=== PATIENT | female | born 1965 | race Caucasian/White ===

== ENCOUNTER 2017-02-20 14:27 | Emergency (ER) | payer SELFPAY ==
--- NOTE | 2017-02-20 14:48 | ER Document Report ---
ED Medical Screen (RME) - General Chief Complaint: Cough Stated Complaint: FLANK PAIN Time Seen by Provider: 02/20/17 14:45 Notes: Patient states that she is having right sided pain. 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 She also states that this may be due to a tumor on her right ovary. She states one year ago she was diagnosed with pancreatic cancer and had a Whipple procedure. She states the procedure totally eradicated the cancer. However at the same time they noticed a tumor on her ovary but told her that she could not have any surgeries or evaluations for it for 1 year. Therefore she has had no follow-up for it. She also states that she has chronic asthma and has been having a bad cough for several days. TRAVEL OUTSIDE OF THE [place] IN LAST 30 DAYS: No - Related Data Allergies/Adverse Reactions: No Known Allergies Allergy (Verified 02/20/17 14:29) Past Medical History - Social History Frequency of alcohol use: None Drug Abuse: Marijuana Pulmonary Medical History: Reports: Hx Asthma Neurological Medical History: Reports: Hx Migraine Renal/ Medical History: Denies: Hx Peritoneal Dialysis Musculoskeltal Medical History: Reports Hx Musculoskeletal Deformity, Reports Hx Musculoskeletal Trauma Psychiatric Medical History: Reports: Hx Anxiety, Hx Attention Deficit Hyperactivity Disorder, Hx Depression, Hx Post Traumatic Stress Disorder Traumatic Medical History: Reports: Hx Fractures - Clavicle foot shoulder arm Past Surgical History: Reports: Hx Appendectomy, Hx Orthopedic Surgery - Shoulder and foot Physical Exam - Vital signs Vitals: Temp Pulse Resp BP Pulse Ox 98.0 F 94 16 123/89 H 98 02/20/17 14:32 02/20/17 14:32 02/20/17 14:32 02/20/17 14:32 02/20/17 14:32 Course - Vital Signs Vital signs: Temp Pulse Resp BP Pulse Ox 98.0 F 94 16 123/89 H 98 02/20/17 14:32 02/20/17 14:32 02/20/17 14:32 02/20/17 14:32 02/20/17 14:32
[2017-02-20 15:16] LABS: ABSOLUTE EOSINOPHILS # (AUTO) 0.1 10^3/uL (0.0-0.6); ABSOLUTE LYMPHOCYTES (AUTO) 1.3 10^3/uL (0.5-4.7); ABSOLUTE MONOCYTES (AUTO) 0.4 10^3/uL (0.1-1.4); ABSOLUTE NEUT (AUTO) 7.1 10^3/uL (1.7-8.2); BASOPHILS % (AUTO) 0.4 % (0-2); EOSINOPHILS % (AUTO) 0.9 % (0-6); HEMATOCRIT 40.8 % (36.0-47.0); HEMOGLOBIN 13.6 g/dL (12.0-15.5); LYMPHOCYTES % (AUTO) 14.3 % (13-45); MEAN CORPUSCULAR HGB CONC 33.3 g/dL (32.0-36.0); MEAN CORPUSCULAR VOLUME 90 fl (80-97); MONOCYTES % (AUTO) 4.8 % (3-13); RED BLOOD COUNT 4.54 10^6/uL (3.72-5.28); RED CELL DISTRIBUTION WIDTH 13.7 % (11.5-14.0); SEGMENTED NEUTROPHILS % (AUTO) 79.6 % (42-78)
[2017-02-20 15:34] LABS: ALANINE AMINOTRANSFERASE 23 U/L (9-52); ALBUMIN 4.6 g/dL (3.5-5.0); ALKALINE PHOSPHATASE 79 U/L (38-126); ANION GAP 13 (5-19); ASPARTATE AMINO TRANSFERASE 24 U/L (14-36); BILIRUBIN,DIRECT 0.3 mg/dL (0.0-0.4); BILIRUBIN,TOTAL 0.4 mg/dL (0.2-1.3); BLOOD UREA NITROGEN 12 mg/dL (7-20); CALCIUM 10.1 mg/dL (8.4-10.2); CARBON DIOXIDE 27 mmol/L (22-30); CHLORIDE 105 mmol/L (98-107); CREATININE RESULT 0.81 mg/dL (0.52-1.25); GLUCOSE 131 mg/dL (75-110); POTASSIUM 4.4 mmol/L (3.6-5.0); SODIUM 145.2 mmol/L (137-145); TOTAL PROTEIN 7.5 g/dL (6.3-8.2)
--- NOTE | 2017-02-20 16:00 | RADIOLOGY REPORT (SQ) ---
EXAM DESCRIPTION: CHEST PA/LAT COMPLETED DATE/TIME: 02/20/2017 3:20 pm REASON FOR STUDY: cough COMPARISON: 11/22/2007 EXAM PARAMETERS: NUMBER OF VIEWS: two views TECHNIQUE: Digital Frontal and Lateral radiographic views of the chest acquired. RADIATION DOSE: NA LIMITATIONS: none FINDINGS: LUNGS AND PLEURA: No opacities, masses or pneumothorax. No pleural effusion. MEDIASTINUM AND HILAR STRUCTURES: No masses or contour abnormalities. HEART AND VASCULAR STRUCTURES: Heart normal size. No evidence for failure. BONES: No acute findings. HARDWARE: None in the chest. OTHER: No other significant finding. IMPRESSION: NO SIGNIFICANT RADIOGRAPHIC FINDING IN THE CHEST. TECHNICAL DOCUMENTATION: JOB ID: [id number] [employer]- All Rights Reserved
[2017-02-20] MEDS ORDERED: PROMETHAZINE HCL 25 MG TABLET PO ONE (16:37)
[2017-02-20] MEDS ORDERED: TRAMADOL HCL 50 MG TABLET PO ONE (16:38)
[2017-02-20 17:47] LABS: APPEARANCE,URINE SLIGHTLY-CLOUDY; BILIRUBIN,URINE NEGATIVE (NEGATIVE); GLUCOSE, URINE NEGATIVE (NEGATIVE); KETONES,URINE NEGATIVE (NEGATIVE); LEUKOCYTE ESTERASE,URINE TRACE (NEGATIVE); NITRITE,URINE NEGATIVE (NEGATIVE); PROTEIN,URINE NEGATIVE (NEGATIVE); UROBILINOGEN,URINE NEGATIVE mg/dL (<2.0)
[2017-02-20 18:57] LABS: CHLAM PCR NOT DETECTED (NOT DETECT)
--- NOTE | 2017-02-20 19:25 | RADIOLOGY REPORT (SQ) ---
EXAM DESCRIPTION: U/S NON OB PEL TV W/DOPPLER COMPLETED DATE/TIME: 02/20/2017 7:12 pm REASON FOR STUDY: RLQ pain, Hx ovarian cyst on right COMPARISON: CT dated 12/28/2015. TECHNIQUE: Dynamic and static grayscale images acquired of the pelvis via transvaginal approach and recorded on PACS. Additional selected color Doppler and spectral images recorded. LIMITATIONS: None. FINDINGS: UTERUS: Contour normal. No mass. ENDOMETRIAL STRIPE: Poorly visualized. CERVIX: No nabothian cysts. RIGHT OVARY: 3 x 3.5 cm cyst adjacent to the right ovary. RIGHT OVARY DOPPLER: Normal arterial vascular flow without evidence for torsion. LEFT OVARY: No abnormal masses. LEFT OVARY DOPPLER: Normal arterial vascular flow without evidence for torsion. FREE FLUID: None noted. OTHER: No other significant finding. MEASUREMENTS: UTERUS: 4.2 x 4.7 x 8.1 cm. ENDOMETRIAL STRIPE: Poorly visualized. RIGHT OVARY: 1.1 x 1.8 x 1.8 cm. LEFT OVARY: 1.3 x 1.8 x 2.2 cm. IMPRESSION: SIMPLE CYST ADJACENT TO THE RIGHT OVARY, LIKELY A PARAOVARIAN CYST. SIMILAR APPEARANCE TO PREVIOUS CT. NO TORSION OR OTHER SIGNIFICANT FINDINGS. TECHNICAL DOCUMENTATION: JOB ID: [id number] [employer]- All Rights Reserved
--- NOTE | 2017-02-20 20:09 | ER Document Report ---
ED General - General Chief Complaint: Cough Stated Complaint: FLANK PAIN Time Seen by Provider: 02/20/17 14:45 Notes: Patient awakened today and was feeling difficulty breathing and coughing. She tried her inhaler that she has for asthma but it did not help. Also says that her pain in the right lower quadrant, ovary has increased above its normal level. Patient has not had any fever. PMH: Appendectomy, cholecystectomy, depression, anxiety, and ADHD. Patient is also complaining of pain in her right ovary region where she was told a year ago that she had a swollen right ovary and tumor. Also, about a year ago patient also was discovered to have a cancer at the head of her pancreas for which she has undergone a Whipple procedure and is now cancer free. She has an appointment next week to see Dr. Chairez, her primary care physician who is to refer her to someone regarding her right ovarian tumor and, on that same CT scan study done a year ago, patient was noted to have some atrophy of the lower pole of her left kidney. TRAVEL OUTSIDE OF THE [place] IN LAST 30 DAYS: No - Related Data Allergies/Adverse Reactions: No Known Allergies Allergy (Verified 02/20/17 14:29) Past Medical History - Social History Smoking Status: Never Smoker Frequency of alcohol use: None Drug Abuse: Marijuana Family History: Reviewed & Not Pertinent, Arthritis, CAD, Hyperlipidemia, Hypertension, Thyroid Disfunction Patient has suicidal ideation: No Patient has homicidal ideation: No Pulmonary Medical History: Reports: Hx Asthma Neurological Medical History: Reports: Hx Migraine Musculoskeltal Medical History: Reports Hx Musculoskeletal Deformity, Reports Hx Musculoskeletal Trauma Psychiatric Medical History: Reports: Hx Anxiety, Hx Attention Deficit Hyperactivity Disorder, Hx Depression, Hx Post Traumatic Stress Disorder Traumatic Medical History: Reports: Hx Fractures - Clavicle foot shoulder arm Past Surgical History: Reports: Hx Appendectomy, Hx Orthopedic Surgery - Shoulder and foot Review of Systems - Review of Systems Notes: REVIEW OF SYSTEMS: CONSTITUTIONAL : Denies fever. EENT: Denies eye, ear, nose or mouth or throat pain or other symptoms. CARDIOVASCULAR: Denies chest pain. RESPIRATORY: Has had some cough for a day and some congestion. GASTROINTESTINAL: See HPI. GENITOURINARY: Denies difficulty or painful urinating, urinary frequency, blood in urine. MUSCULOSKELETAL: Denies back or neck pain. Denies joint pain or swelling. SKIN: Denies rash or skin lesions. NEUROLOGICAL: Denies LOC or altered mental status. Denies headache. Denies sensory loss or motor deficits. ALL OTHER SYSTEMS REVIEWED AND NEGATIVE. Physical Exam - Vital signs Vitals: Temp Pulse Resp BP Pulse Ox 98.0 F 94 16 123/89 H 98 02/20/17 14:32 02/20/17 14:32 02/20/17 14:32 02/20/17 14:32 02/20/17 14:32 - Notes Notes: PHYSICAL EXAMINATION: GENERAL: Well-appearing, in no acute distress. Vital signs are normal. HEAD: Atraumatic, normocephalic. NECK: Normal range of motion, supple. LUNGS: Breath sounds clear and equal bilaterally. HEART: Regular rate and rhythm without murmurs. ABDOMEN: Soft, only mild tenderness in the right lower quadrant. No guarding. No rebound. No masses felt. No bruits heard. BACK: No tenderness throughout entire back. EXTREMITIES: Normal range of motion without pain. NEUROLOGICAL: Normal speech, normal gait. Normal sensory, motor, and reflex exams. Awake, alert, and oriented x3. Cranial nerves normal. PSYCH: Normal mood, normal affect. SKIN: Warm, dry, no rashes. Course - Vital Signs Vital signs: Temp Pulse Resp BP Pulse Ox 97.8 F 84 19 127/81 H 95 02/20/17 20:25 02/20/17 20:25 02/20/17 20:25 02/20/17 20:25 02/20/17 20:25 - Laboratory Result Diagrams: 02/20/17 14:50 02/20/17 14:50 Laboratory results interpreted by me: 02/20/17 02/20/17 02/20/17 14:50 14:50 14:50 Seg Neutrophils % 79.6 H Sodium 145.2 H Glucose 131 H Beta HCG, Quant 7.24 H Ur Leukocyte Esterase 02/20/17 17:10 Seg Neutrophils % Sodium Glucose Beta HCG, Quant Ur Leukocyte Esterase TRACE H - Diagnostic Test Radiology reviewed: Image reviewed, Reports reviewed - Ultrasound reveals a small right ovarian cyst, slightly larger in dimensions than what was mentioned on her CT scan a year ago. Discharge - Discharge Clinical Impression: Cough, Trichomonas vaginitis, Ovarian cyst Condition: Stable Disposition: HOME, SELF-CARE Additional Instructions: UPPER RESPIRATORY ILLNESS: You have a viral infection of the respiratory passages -- a "cold." This common infection causes nasal congestion, drainage, and often sore throat and cough. It is highly contagious. The disease usually lasts about 10 to 14 days. There is no "cure" for the viral infection -- it must run its course. If there is a complication, such as bacterial infection in the nose, sinuses, middle ear, or bronchial tubes, antibiotics may be required. The antibiotics won't affect the virus. Drink plenty of fluids. A humidifier may help. An expectorant medication or decongestant may make you more comfortable. Use acetaminophen or ibuprofen for fever or aches. See the doctor if fever persists over two days, if there is any significant worsening of your symptoms, or if you simply fail to improve as expected. COUGH-SUPPRESSANT & EXPECTORANT MEDICATION: You are to use a cough medication as needed for relief of symptoms. This medicine is a combination of an expectorant (to make the mucous thinner and more easily "coughed up") and a cough suppressant (to reduce the frequency of coughing). The cough-suppressant medicine is related to narcotics. You may experience mild nausea and sleepiness. Some patients who are very sensitive to narcotics may have stomach pain from this medicine. Taking the medicine with food reduces these side effects. Do not drive or work with machinery until you know how this medicine affects you. The expectorant should have no side effects. Iodine-containing expectorants (such as organidin) should not be taken by persons with active thyroid disease unless approved by your doctor. Call the doctor if you develop shortness of breath, hives, rash, itching, lightheadedness, or severe nausea and vomiting. Oral Narcotic Medication You have been given a prescription for pain control. This medication is a narcotic. It's best taken with food, as nausea can result if taken on an empty stomach. Don't operate machinery or drive within six hours of taking this medication. Do not combine this medicine with alcohol, or with any medication which can cause sedation (such as cold tablets or sleeping pills) unless you get permission from the physician. Narcotics tend to cause constipation. If possible, drink plenty of fluids and eat a diet high in fiber and fruits. PELVIC PAIN: There are many causes of pain in the pelvic area. The cause could be the tubes, ovaries, uterus, intestines, appendix, pelvic muscles and connective tissue, or the urinary tract. The cause of your pelvic pain is not clear. However, it seems safe to treat you outside the hospital. If the pain sounds like a temporary problem, we sometimes wait to see if it goes away. Other patients may need additional tests, such as pelvic ultrasound or cultures. Conditions may change. Call us or come back for reexamination if any problems occur, such as: (1) Pain that becomes more severe, steady, or becomes concentrated in one specific area. Also, pain that is more severe with movement or coughing. (2) Vomiting that persists or becomes more frequent. (3) Blood in the vomitus, urine, or bowel movements. Blood in the stool may have a tarry or black appearance. (4) Shaking chills or fever greater than 100 degrees. (5) The abdomen becomes more distended or swollen. (6) Bowel movements cease. (7) Heavy vaginal bleeding. Ovarian Cyst Your examination shows the presence of an ovarian cyst. This is a ball of fluid attached to the ovary. Ovarian cysts in women of child-bearing age are usually innocent. However, the cyst may cause pain when it grows or bursts. An innocent ovarian cyst will usually go away by itself. When the cyst becomes painful, you should rest. Pain medication may be required. Some women find a hot water bottle soothing. The pain usually resolves within one or two days. After menopause, an ovarian cyst may mean a tumor, and requires more aggressive evaluation -- usually surgery is recommended to remove or biopsy the cyst. A very large cyst requires evaluation at any age. Most cysts (even the innocent ones) require follow-up examination. Call the doctor or return at any time if the pain increases significantly, if you become faint, or if you experience vaginal bleeding. Your cyst looks stable and is about the same as it was, may be slightly larger, than a year ago on the CT scan. Trichomonas Infection Trichomoniasis is infection of the vagina or male genital tract with Trichomonas vaginalis. It can be asymptomatic or cause urethritis, vaginitis, or occasionally cystitis, epididymitis, or prostatitis. Diagnosis is by microscopic examination of vaginal or prostatic secretions or by urethral culture. Patients and sex partners are treated with metronidazole. T. vaginalis is a flagellated, sexually transmitted protozoan that more often infects women (about 20% of women of reproductive age) than men. Infection may be asymptomatic in either sex, but asymptomatic is the rule for men. In men, protozoa may persist for long periods in the tract without causing symptoms; thus, protozoa may be transmitted unwittingly to sex partners. Trichomoniasis may account for up to 5% of nongonococcal, nonchlamydial urethritis in men in some areas. Co-infection with gonorrhea and other sexually transmitted diseases (STDs) is common. In women, symptoms range from none to copious, yellow-green, frothy vaginal discharge with soreness of the vulva and perineum, dyspareunia, and dysuria. Asymptomatic infection may become symptomatic at any time as the vulva and perineum become inflamed and edema develops in the labia. The vaginal davis and surface of the cervix may have punctate, red "strawberry" spots. Urethritis and possibly cystitis may also occur. Men are usually asymptomatic; however, sometimes urethritis results in a discharge that may be transient, frothy, or purulent or that causes dysuria and frequency, usually early in the morning. Often, urethritis is mild and causes only minimal urethral irritation and occasional moisture at the urethral meatus , under the foreskin, or both. Epididymitis and prostatitis are rare complications. Trichomoniasis is suspected in women with vaginitis, in men with urethritis , and in their sex partners. Suspicion is high if symptoms persist after patients have been evaluated and treated for other infections such as gonorrhea and chlamydial, mycoplasmal, and ureaplasmal infections. In women, diagnosis is based on clinical criteria and in-office testing. The saline wet mount is examined microscopically as soon as possible to detect trichomonads.In men, microscopy of urine is insensitive, although occasionally organisms are visible in a first-voided morning specimen or a centrifuged specimen. Cultures of urine and urethral swabs are more sensitive. As with diagnosis of any STD, patients with trichomoniasis should be tested to exclude other common STDs such as gonorrhea and chlamydial infection. Metronidazole or tinidazole 2 g po in a single dose cures up to 95% of women if sex partners are treated simultaneously. Effectiveness of single-dose regimens in men is not as clear, so treatment is typically with metronidazole or tinidazole 500 mg bid for 5 to 7 days. Sex partners should be screened and treated for trichomoniasis and other STDs. If poor adherence to follow-up is likely, treatment can be initiated in sex partners of patients with documented trichomoniasis without confirming the diagnosis in the partner. Oral Narcotic Medication for pain You have been given a prescription for pain control. This medication is a narcotic. It's best taken with food, as nausea can result if taken on an empty stomach. Don't operate machinery or drive within six hours of taking this medication. Do not combine this medicine with alcohol, or with any medication which can cause sedation (such as cold tablets or sleeping pills) unless you get permission from the physician. Narcotics tend to cause constipation. If possible, drink plenty of fluids and eat a diet high in fiber and fruits. METRONIDAZOLE: Metronidazole (Flagyl) has been prescribed. This medication is used to kill a type of bacteria called anaerobes, and protozoan parasites such as trichomonas and Giardia. Flagyl often causes a metallic taste in the mouth and mild nausea. Do not use alcohol in any form with Flagyl (including alcohol in medication elixirs). Flagyl interacts with alcohol to cause flushing, palpitations, headache, stomach cramps, and vomiting. Do not use Flagyl if you are taking Antabuse (disulfiram). Call the doctor at once if you develop rash, shortness of breath, itching, or lightheadedness. Your test came back minimally elevated and I am quite certain you are not . No was seen on your ultrasound. With a lab tests showing the results that yours did, we recommend you have a repeat test done in a week or 2. Your primary care provider can order that follow-up test. FOLLOW-UP CARE: If you have been referred to a physician for follow-up care, call the physician s office for an appointment as you were instructed or within the next two days. If you experience worsening or a significant change in your symptoms, notify the physician immediately or return to the Emergency Department at any time for re-evaluation. Prescriptions: Hydrocodone/Acetaminophen [[place] 5-325 mg Tablet] 1 tab PO Q4HP PRN #15 tablet PRN Reason: Metronidazole 500 mg PO BID #14 tablet Referrals: REJI CHAIREZ MD [Primary Care Provider] - Follow up as needed
[2017-02-20] MEDS ORDERED: HYDROCODONE/ACETAMINOPHEN 5-325 MG TABLET PO ONE (20:11)
[2017-02-20 20:26] VITALS: BP 127/81
== END 2017-02-20 20:25 | disposition home or self-care (01) ==
LOC: ER 14:27
DX: A59.01 Trichomonal vulvovaginitis (principal); N83.201 Unspecified ovarian cyst, right side; R05 Cough; R10.9 Unspecified abdominal pain; R10.31 Right lower quadrant pain
CPT/HCPCS: 36415; 71020; 76830; 80053; 81001; 84702; 85025; 87210; 87491; 87591; 93976; 99284

== ENCOUNTER 2017-06-24 14:11 | Emergency (ER) | payer MEDICAID ==
[2017-06-24 14:19] VITALS: BP 113/96
[2017-06-24] MEDS ORDERED: ONDANSETRON 4 MG TAB.RAPDIS PO ONE (15:02)
[2017-06-24] MEDS ORDERED: OXYCODONE-ACETAMINOPHEN 5-325 MG TABLET PO ONE (15:02)
--- NOTE | 2017-06-24 15:05 | ER Document Report ---
ED GI/ - General Chief Complaint: Abdominal Pain Stated Complaint: ABDOMINAL PAIN Time Seen by Provider: 06/24/17 14:50 Mode of Arrival: Ambulatory Information source: Patient, [facility] Records Notes: 51-year-old female patient reports sharp severe pains in the bladder with right flank pain. She reports right flank pain tends to wrap around down to the bladder. She has painful and frequent urination, she states it feels like razor blades when the urine does come out. Past medical significant for a Whipple procedure done about a year ago. She had been told about a right ovarian cyst, however in February and ultrasound showed a right paraovarian cyst that was unchanged from previous studies. She states that she does have a history of becoming anemic if she becomes ill ever since the Whipple procedure for a pancreatic head mass. He does not have a history of kidney stones, however she reports she has only a right kidney. TRAVEL OUTSIDE OF THE [place] IN LAST 30 DAYS: No - Related Data Allergies/Adverse Reactions: meperidine [From Demerol] Allergy (Verified 06/24/17 14:38) Past Medical History - General Information source: Patient, [facility] Records - Social History Smoking Status: Never Smoker Cigarette use (# per day): No Chew tobacco use (# tins/day): No Frequency of alcohol use: None Drug Abuse: Marijuana Occupation: Unemployed Lives with: Friend Family History: Reviewed & Not Pertinent, Arthritis, CAD, Hyperlipidemia, Hypertension, Thyroid Disfunction Patient has suicidal ideation: No Patient has homicidal ideation: No - Past Medical History Cardiac Medical History: Reports: None Pulmonary Medical History: Reports: Hx Asthma EENT Medical History: Reports: None Neurological Medical History: Reports: Hx Migraine Endocrine Medical History: Reports: None Renal/ Medical History: Reports: Other - 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 GI Medical History: Reports: Other - Patient did have a Whipple procedure recently for a mass in the head of the Musculoskeltal Medical History: Reports Hx Musculoskeletal Deformity, Reports Hx Musculoskeletal Trauma Psychiatric Medical History: Reports: Hx Anxiety, Hx Attention Deficit Hyperactivity Disorder, Hx Depression, Hx Post Traumatic Stress Disorder Traumatic Medical History: Reports: Hx Fractures - Clavicle foot shoulder arm Past Surgical History: Reports: Hx Appendectomy, Hx Orthopedic Surgery - Shoulder and foot, Hx Whipple Review of Systems - Review of Systems Constitutional: No symptoms reported EENT: No symptoms reported Cardiovascular: No symptoms reported Respiratory: No symptoms reported Gastrointestinal: No symptoms reported Genitourinary: See HPI Female Genitourinary: Post menopausal Musculoskeletal: No symptoms reported Skin: No symptoms reported Hematologic/Lymphatic: No symptoms reported Neurological/Psychological: No symptoms reported Physical Exam - Vital signs Vitals: Temp Pulse Resp BP Pulse Ox 98.2 F 105 H 18 113/96 H 98 06/24/17 14:17 06/24/17 14:17 06/24/17 14:17 06/24/17 14:17 06/24/17 14:17 Interpretation: Normal - General General appearance: Appears well, Alert In distress: Mild - She is uncomfortable from her suprapubic and flank discomfort - HEENT Head: Normocephalic, Atraumatic Eyes: Normal Pupils: PERRL Pharynx: Normal Neck: Normal - Respiratory Respiratory status: No respiratory distress Breath sounds: Normal - Cardiovascular Rhythm: Regular Heart sounds: Normal auscultation Murmur: No - Abdominal Inspection: Normal Bowel sounds: Normal Tenderness: Tender - Left lower quadrant palpation causes pain in the suprapubic right lower quadrant region. Suprapubic and right lower quadrant palpation is very tender.. No: Guarding, Rebound - Back Back: Nontender - Right flank area is not really tender to palpate., CVA tenderness - Some right CVA percussion tenderness - Extremities General upper extremity: Normal inspection General lower extremity: Normal inspection - Neurological Neuro grossly intact: Yes - Psychological Associated symptoms: Normal affect, Normal mood - Skin Skin Temperature: Warm Skin Moisture: Dry Skin Color: Normal Course - Re-evaluation Re-evalutation: 06/24/17 17:33 CT scan does not show acute findings other than an enlarging cystic mass in the right adnexal region which is suggestive of a dermoid cyst. The urinalysis had a specific gravity 1.040, this is patient was not receiving contrast. She reports that she had been vomiting, but does not look clinically that dry. The wound is 15 and her creatinine is 0.70 - Vital Signs Vital signs: Temp Pulse Resp BP Pulse Ox 98.2 F 105 H 18 113/96 H 98 06/24/17 14:17 06/24/17 14:17 06/24/17 14:17 06/24/17 14:17 06/24/17 14:17 - Laboratory Result Diagrams: 06/24/17 15:30 06/24/17 15:30 Laboratory results interpreted by me: 06/24/17 15:30 Urine Ketones TRACE H Urine Bilirubin SMALL H Urine Urobilinogen 2.0 H Urine Ascorbic Acid 40 H - Diagnostic Test Radiology reviewed: Image reviewed, Reports reviewed - CT scan shows a left atrophied kidney with duplicate collecting system and calculi in the lower pole of the kidney. In the right adnexal region there is a thick-walled cystic structure suggestive of a dermoid cyst. On 02/20/2017 this was 3.5 x 3.0 cm, today it is 4.1 x 3.8 cm. Ultrasound today is read as complex cystic mass right adnexa. On review of prior CT imaging it is suggestive of a pyosalpinx/ tubo-ovarian abscess. - Consults Dr. Nieto Time consulted: 19:10 Consulted provider: follow-up in office - Recommend starting doxycycline and Flagyl and follow-up in the office at the end of the week. Discharge - Discharge Clinical Impression: Adnexal cyst, Adnexal tenderness, right, Dehydration Condition: Stable Disposition: HOME, SELF-CARE Additional Instructions: The ultrasound of your right ovary cystic mass suggest a possible infectious cause as opposed to a dermoid cyst. I have discussed the case with Dr. Nieto from [facility]. He recommends antibiotics at this time, pain medication, and call the office tomorrow for a follow-up appointment on Friday. Your urine is extremely concentrated suggesting you have not been drinking nearly enough fluids. //////////////////////////////////////////////////////////////////////////////// //////////////////////////////////////////////////////////////////////////////// ///////////////// Take medications as prescribed. Rest. Drink plenty of fluids this evening. Take the nausea medicine as dispensed if needed. Call [facility] tomorrow morning to make an appointment for Friday to be rechecked. RETURN TO THE EMERGENCY ROOM IF ANY NEW OR WORSENING SYMPTOMS. Prescriptions: Doxycycline Hyclate 100 mg PO BID #14 tablet Metronidazole [Flagyl 500 mg Tablet] 500 mg PO TID #21 tablet Oxycodone HCl/Acetaminophen [Percocet 5-325 mg Tablet] 1 tab PO ASDIR PRN #12 tablet PRN Reason: Referrals: [facility] [Provider Group] - 06/27/17 (Call tomorrow for a Friday appointment.)
[2017-06-24 15:47] LABS: ABSOLUTE EOSINOPHILS # (AUTO) 0.2 10^3/uL (0.0-0.6); ABSOLUTE LYMPHOCYTES (AUTO) 1.2 10^3/uL (0.5-4.7); ABSOLUTE MONOCYTES (AUTO) 0.8 10^3/uL (0.1-1.4); ABSOLUTE NEUT (AUTO) 6.8 10^3/uL (1.7-8.2); BASOPHILS % (AUTO) 0.4 % (0-2); EOSINOPHILS % (AUTO) 1.9 % (0-6); HEMATOCRIT 38.6 % (36.0-47.0); HEMOGLOBIN 13.2 g/dL (12.0-15.5); LYMPHOCYTES % (AUTO) 13.8 % (13-45); MEAN CORPUSCULAR HEMOGLOBIN 29.8 pg (27.0-33.4); MEAN CORPUSCULAR HGB CONC 34.2 g/dL (32.0-36.0); MEAN CORPUSCULAR VOLUME 87 fl (80-97); MONOCYTES % (AUTO) 8.7 % (3-13); PLATELET COUNT 265 10^3/uL (150-450); RED BLOOD COUNT 4.42 10^6/uL (3.72-5.28); RED CELL DISTRIBUTION WIDTH 13.1 % (11.5-14.0); SEGMENTED NEUTROPHILS % (AUTO) 75.2 % (42-78); TOTAL CELLS COUNTED % (AUTO) 100 %
[2017-06-24 16:07] LABS: ALANINE AMINOTRANSFERASE 34 U/L (9-52); ALBUMIN 4.4 g/dL (3.5-5.0); ALKALINE PHOSPHATASE 92 U/L (38-126); ANION GAP 13 (5-19); ASPARTATE AMINO TRANSFERASE 30 U/L (14-36); BILIRUBIN,DIRECT 0.3 mg/dL (0.0-0.4); BILIRUBIN,TOTAL 0.4 mg/dL (0.2-1.3); BLOOD UREA NITROGEN 15 mg/dL (7-20); CALCIUM 9.9 mg/dL (8.4-10.2); CARBON DIOXIDE 26 mmol/L (22-30); CHLORIDE 103 mmol/L (98-107); GLUCOSE 105 mg/dL (75-110); POTASSIUM 4.1 mmol/L (3.6-5.0); SODIUM 142.1 mmol/L (137-145); TOTAL PROTEIN 7.6 g/dL (6.3-8.2)
[2017-06-24 16:10] LABS: APPEARANCE,URINE SLIGHTLY-CLOUDY; BILIRUBIN,URINE SMALL (NEGATIVE); COLOR,URINE AMBER; GLUCOSE, URINE NEGATIVE (NEGATIVE); KETONES,URINE TRACE mg/dL (NEGATIVE); LEUKOCYTE ESTERASE,URINE NEGATIVE (NEGATIVE); NITRITE,URINE NEGATIVE (NEGATIVE); PROTEIN,URINE NEGATIVE (NEGATIVE)
--- NOTE | 2017-06-24 16:11 | RADIOLOGY REPORT (SQ) ---
EXAM DESCRIPTION: CT LTD RENAL STONE PROTOCOL ON COMPLETED DATE/TIME: 06/24/2017 3:44 pm REASON FOR STUDY: R flank pain, one kidney, UTI COMPARISON: CT abdomen pelvis 12/28/2015 TECHNIQUE: CT scan of the abdomen and pelvis performed without intravenous or oral contrast. Images reviewed with lung, soft tissue, and bone windows. Reconstructed coronal and sagittal MPR images revi ewed. All images stored on PACS. All CT scanners at this facility use dose modulation, iterative reconstruction, and/or weight based d osing when appropriate to reduce radiation dose to as low as reasonably achievable (ALARA). [facility]: Dose Right [facility]: CareDose [facility]: Dose Right [facility]: Teradose 4D [facility]: [employer] RADIATION DOSE: CT Rad equipment meets quality standard of care and radiation dose reduction techniq ues were employed. CTDIvol: 7.6 mGy. DLP: 409 mGy-cm.mGy. LIMITATIONS: None. FINDINGS: LOWER CHEST: No significant findings. No nodules or infiltrates. NON-CONTRASTED LIVER, SPLEEN, ADRENALS, PANCREAS, GALLBLADDER: Since the prior study patient has unde rgone a Whipple procedure condyle with resection of a pancreatic head mass. On today's study, surgic al clips are present at the pancreatic head. Post cholecystectomy. Liver, spleen, adrenals unremark able. RIGHT KIDNEY AND URETER: No suspicious masses. Assessment limited by lack of IV contrast. No signif icant calcifications. No hydronephrosis or hydroureter. LEFT KIDNEY AND URETER: No suspicious masses. There is a duplicated collecting system left kidney, w ith cortical atrophy of the lower pole left kidney. Several calculi are present in the left lower po le kidney less than 5 mm in size. No left ureteral stones. No left upper or lower pole hydronephros is. No hydroureter. AORTA AND RETROPERITONEUM: No aneurysm. No retroperitoneal masses or adenopathy. BOWEL AND PERITONEAL CAVITY: No obvious masses or inflammatory changes. No free fluid. APPENDIX: Surgically absent PELVIS, BLADDER, AND ABDOMINAL WALL:No abnormal masses. No free fluid. Bladder normal. Normal size u terus and left ovary. On the right side, a thick walled cystic structure is present 4.1 x 3.8 cm siz e. This measures fatty density centrally, a dermoid on the right ovary is suspected by CT. Pelvic u ltrasound could be useful for correlation BONES: No significant findings. OTHER: No other significant finding. IMPRESSION: Since the prior exams 12/28/2015, patient has undergone Whipple procedure. No recurrent mass on today's noncontrast CT. Thick walled complex cystic structure with spotty areas of fatty density in the right ovary, likely a dermoid. Consider follow-up ultrasound for followup Duplicated left kidney, with atrophy of the lower pole left kidney with cortical thinning. Lower rubens e less than 5 mm intrarenal nonobstructive left-sided kidney stones are present without hydronephrosi s. COMMENT: Quality ID # [id number]: Final reports with documentation of one or more dose reduction techniques (e.g., Automated exposure control, adjustment of the mA and/or kV according to patient size, use of iterative reconstruction technique) TECHNICAL DOCUMENTATION: JOB ID: [id number] [employer]- All Rights Reserved
--- NOTE | 2017-06-24 18:56 | RADIOLOGY REPORT (SQ) ---
EXAM DESCRIPTION: U/S NON-OB PELVIS TV W/O DOP COMPLETED DATE/TIME: 06/24/2017 6:41 pm REASON FOR STUDY: R ovarian mass, dermoid cyst? COMPARISON: CT from 06/24/2017. 02/20/2017 TECHNIQUE: Dynamic and static grayscale images acquired of the pelvis via transvaginal approach and recorded on PACS. Additional selected color Doppler and spectral images recorded. RADIATION DOSE: Complex cystic mass right adnexa adjacent to the ovary measuring 2.5 x 1.9 x 1.8 cm corresponding to finding on CT. The ovary itself appears to be grossly normal. LIMITATIONS: Limited by body wall acoustics. FINDINGS: UTERUS: Contour normal. No mass. ENDOMETRIAL STRIPE: No focal or generalized thickening. No masses. CERVIX: No nabothian cysts. RIGHT OVARY: Complex cystic mass adjacent to the right ovary measuring 2.5 x 1.9 x 1.8 cm. Right ova ry appears to be grossly normal. RIGHT OVARY DOPPLER: Normal arterial vascular flow without evidence for torsion. LEFT OVARY: No abnormal masses. LEFT OVARY DOPPLER: Normal arterial vascular flow without evidence for torsion. FREE FLUID: None noted. OTHER: No other significant finding. MEASUREMENTS: UTERUS: 6.6 x 4.4 x 5.0 cm. ENDOMETRIAL STRIPE: 6 mm. RIGHT OVARY: 1.6 x 1.3 x 1.9 cm. LEFT OVARY: 1.7 x 1.7 x 1.8 cm. IMPRESSION: COMPLEX CYSTIC MASS RIGHT ADNEXA. UPON REVIEW OF PRIOR CT OVERALL IMAGING CHARACTERISTI CS IS SUGGESTIVE OF A PYOSALPINX/ TUBAL OVARIAN ABSCESS. CORRELATE WITH PELVIC EXAM. TECHNICAL DOCUMENTATION: JOB ID: [id number]- All Rights Reserved
[2017-06-24] MEDS ORDERED: ONDANSETRON ODT 4 MG TAB (6 TAB/ER DISP) PO PRN (19:24)
== END 2017-06-24 19:33 | disposition home or self-care (01) ==
LOC: ER 14:11
DX: N83.201 Unspecified ovarian cyst, right side (principal); E86.0 Dehydration; R10.9 Unspecified abdominal pain; R39.89 Other symptoms and signs involving the genitourinary system
CPT/HCPCS: 99284; 36415; 87040; 87086; 85025; 80053; 81001; 76830; 76380; S0119

== ENCOUNTER 2018-12-07 12:34 | Emergency (ER) | payer SELFPAY ==
[2018-12-07] MEDS ORDERED: ONDANSETRON HCL INJ/PF 4 MG/2 ML SDV IV ONE (13:40)
[2018-12-07] MEDS ORDERED: NORMAL SALINE 1000 ML 1,000 ML IV ONE (13:40)
--- NOTE | 2018-12-07 13:41 | ER Document Report ---
ED Medical Screen (RME) - General Chief Complaint: Abdominal Pain Stated Complaint: ABDOMINAL PAIN Time Seen by Provider: 12/07/18 13:27 Notes: Patient is a 53-year-old female with a history of pancreatic cancer and asthma who presents to the emergency department for upper abdominal pain. Patient states that about 1 week ago she developed upper abdominal pain with increase in bloating. Patient states she does have chronic nausea due to her Whipple procedure in 2016 from pancreatic cancer. Patient states she has vomited a few times as a severe burning sensation in the epigastric area of her abdomen. Patient states she has been using ibuprofen with no relief. Patient does report a history of abdominal hysterectomy and appendectomy. Patient was told in July she had a hernia around the hysterectomy site but states that over the past few days the area has become more swollen and tender to touch. Patient also states that her last bowel movement was 3 days ago and reports constipation. Patient states that this is not normal for her. Patient also reports pain with urination. TRAVEL OUTSIDE OF THE [place] IN LAST 30 DAYS: No - Related Data Allergies/Adverse Reactions: meperidine [From Demerol] Allergy (Verified 12/07/18 12:41) Past Medical History Pulmonary Medical History: Reports: Hx Asthma Neurological Medical History: Reports: Hx Migraine Renal/ Medical History: Denies: Hx Peritoneal Dialysis Musculoskeltal Medical History: Reports Hx Musculoskeletal Deformity, Reports Hx Musculoskeletal Trauma Psychiatric Medical History: Reports: Hx Anxiety, Hx Attention Deficit Hyperactivity Disorder, Hx Depression, Hx Post Traumatic Stress Disorder Traumatic Medical History: Reports: Hx Fractures - Clavicle foot shoulder arm Past Surgical History: Reports: Hx Appendectomy, Hx Orthopedic Surgery - Shoulder and foot, Hx Whipple Physical Exam - Vital signs Vitals: Temp Pulse Resp BP Pulse Ox 98.8 F 93 22 H 152/108 H 95 12/07/18 13:16 12/07/18 13:16 12/07/18 13:16 12/07/18 13:16 12/07/18 13:16 Interpretation: Hypertensive - Abdominal Inspection: Obese Distension: Distended Bowel sounds: Hypoactive Organomegaly: No organomegaly Notes: Palpable large mass in the upper abdomen above the umbilicus near a healed surgical site. This bulge is extremely tender to touch. Course - Re-evaluation Re-evalutation: 12/07/18 13:39 I have greeted and performed a rapid initial assessment of this patient. A comprehensive ED assessment and evaluation of the patient, analysis of test results and completion of the medical decision making process will be conducted by additional ED providers. - Vital Signs Vital signs: Temp Pulse Resp BP Pulse Ox 98.8 F 93 22 H 152/108 H 95 12/07/18 13:16 12/07/18 13:16 12/07/18 13:16 12/07/18 13:16 12/07/18 13:16
[2018-12-07 14:32] LABS: ABSOLUTE EOSINOPHILS # (AUTO) 0.1 10^3/uL (0.0-0.6); ABSOLUTE LYMPHOCYTES (AUTO) 0.8 10^3/uL (0.5-4.7); ABSOLUTE MONOCYTES (AUTO) 0.6 10^3/uL (0.1-1.4); ABSOLUTE NEUT (AUTO) 5.3 10^3/uL (1.7-8.2); APPEARANCE,URINE SLIGHTLY-CLOUDY; BASOPHILS % (AUTO) 0.3 % (0-2); BILIRUBIN,URINE NEGATIVE (NEGATIVE); EOSINOPHILS % (AUTO) 0.8 % (0-6); GLUCOSE, URINE NEGATIVE (NEGATIVE); HEMATOCRIT 39.7 % (36.0-47.0); HEMOGLOBIN 13.5 g/dL (12.0-15.5); KETONES,URINE TRACE mg/dL (NEGATIVE); LEUKOCYTE ESTERASE,URINE TRACE (NEGATIVE); LYMPHOCYTES % (AUTO) 11.7 % (13-45); MEAN CORPUSCULAR HEMOGLOBIN 29.2 pg (27.0-33.4); MEAN CORPUSCULAR HGB CONC 34.1 g/dL (32.0-36.0); MEAN CORPUSCULAR VOLUME 86 fl (80-97); MONOCYTES % (AUTO) 9.5 % (3-13); NITRITE,URINE NEGATIVE (NEGATIVE); PLATELET COUNT 195 10^3/uL (150-450); PROTEIN,URINE 30 mg/dL (NEGATIVE); RED BLOOD COUNT 4.64 10^6/uL (3.72-5.28); RED CELL DISTRIBUTION WIDTH 13.7 % (11.5-14.0); SEGMENTED NEUTROPHILS % (AUTO) 77.7 % (42-78); TOTAL CELLS COUNTED % (AUTO) 100 %; URINE SPECIFIC GRAVITY 1.027; UROBILINOGEN,URINE NEGATIVE mg/dL (<2.0); WHITE BLOOD COUNT 6.8 10^3/uL (4.0-10.5)
[2018-12-07 14:35] LABS: COLOR,URINE YELLOW
[2018-12-07 14:52] LABS: ALANINE AMINOTRANSFERASE 72 U/L (9-52); ALBUMIN 4.8 g/dL (3.5-5.0); ALKALINE PHOSPHATASE 160 U/L (38-126); ANION GAP 11 (5-19); ASPARTATE AMINO TRANSFERASE 71 U/L (14-36); BILIRUBIN,DIRECT 0.3 mg/dL (0.0-0.4); BILIRUBIN,TOTAL 0.4 mg/dL (0.2-1.3); BLOOD UREA NITROGEN 14 mg/dL (7-20); CALCIUM 10.1 mg/dL (8.4-10.2); CARBON DIOXIDE 28 mmol/L (22-30); CHLORIDE 104 mmol/L (98-107); GLUCOSE 87 mg/dL (75-110); LIPASE 134.2 U/L (23-300); POTASSIUM 4.1 mmol/L (3.6-5.0); SODIUM 143.4 mmol/L (137-145); TOTAL PROTEIN 8.1 g/dL (6.3-8.2)
--- NOTE | 2018-12-07 15:01 | ER Document Report ---
ED GI/ - General Chief Complaint: Abdominal Pain Stated Complaint: ABDOMINAL PAIN Time Seen by Provider: 12/07/18 13:27 Primary Care Provider: CHRISTIE PURVIS DO [Primary Care Provider] - Follow up as needed Notes: Patient is a 53-year-old female with a history of pancreatic cancer and asthma who presents to the emergency department for upper abdominal pain. Patient states that about 1 week ago she developed upper abdominal pain with increase in bloating. Patient states she does have chronic nausea due to her Whipple procedure in 2016 from pancreatic cancer. Patient states she has vomited a few times as a severe burning sensation in the epigastric area of her abdomen. Patient states she has been using ibuprofen with no relief. Patient does report a history of abdominal hysterectomy and appendectomy. Patient was told in July she had a hernia around the hysterectomy site but states that over the past few days the area has become more swollen and tender to touch. Patient also states that her last bowel movement was 3 days ago and reports constipation. Patient states that this is not normal for her. Patient also reports pain with urination. TRAVEL OUTSIDE OF THE [place] IN LAST 30 DAYS: No - Related Data Allergies/Adverse Reactions: meperidine [From Demerol] Allergy (Verified 12/07/18 12:41) Past Medical History - Social History Smoking Status: Never Smoker Frequency of alcohol use: None Drug Abuse: None Family History: Reviewed & Not Pertinent, Arthritis, CAD, Hyperlipidemia, Hypertension, Thyroid Disfunction Patient has suicidal ideation: No Patient has homicidal ideation: No - Past Medical History Cardiac Medical History: Reports: None Pulmonary Medical History: Reports: Hx Asthma EENT Medical History: Reports: None Neurological Medical History: Reports: Hx Migraine Endocrine Medical History: Reports: None Renal/ Medical History: Reports: None. Denies: Hx Peritoneal Dialysis Malignancy Medical History: Reports: None GI Medical History: Reports: None Musculoskeletal Medical History: Reports Hx Musculoskeletal Deformity, Reports Hx Musculoskeletal Trauma Skin Medical History: Reports None Psychiatric Medical History: Reports: Hx Anxiety, Hx Attention Deficit Hyperactivity Disorder, Hx Depression, Hx Post Traumatic Stress Disorder Traumatic Medical History: Reports: Hx Fractures - Clavicle foot shoulder arm Infectious Medical History: Reports: None Past Surgical History: Reports: Hx Appendectomy, Hx Orthopedic Surgery - Shoulder and foot, Hx Whipple Review of Systems - Review of Systems Constitutional: No symptoms reported EENT: No symptoms reported Cardiovascular: No symptoms reported Respiratory: No symptoms reported Gastrointestinal: See HPI Genitourinary: No symptoms reported Female Genitourinary: No symptoms reported Musculoskeletal: No symptoms reported Skin: See HPI Hematologic/Lymphatic: No symptoms reported Neurological/Psychological: No symptoms reported Physical Exam - Vital signs Vitals: Temp Pulse Resp BP Pulse Ox 98.8 F 93 22 H 152/108 H 95 12/07/18 13:16 12/07/18 13:16 12/07/18 13:16 12/07/18 13:16 12/07/18 13:16 Interpretation: Hypertensive - Notes Notes: GENERAL: Well-appearing, in mild distress related to pain. HEAD: Atraumatic, normocephalic. EYES: Pupils equal round and reactive to light, extraocular movements intact, sc favian anicteric, conjunctiva are normal. ENT: Nares patent, oropharynx clear without exudates. Moist mucous membranes. NECK: Normal range of motion, supple without lymphadenopathy or JVD. LUNGS: Breath sounds clear to auscultation bilaterally and equal. No wheezes rales or rhonchi. HEART: Regular rate and rhythm without murmurs, rubs or gallops. ABDOMEN: Soft, round, upper abdominal palpated mass above the umbilicus which is soft but extremely tender, active bowel sounds in LLQ and RLQ, hypoactive bowel sounds in epigastric area/RUQ/LUQ. BACK: No cervical, thoracic, lumbar midline tenderness. No saddle anesthesia, normal distal neurovascular exam. GENITOURINARY: Deferred. EXTREMITIES: Normal range of motion, no pitting or edema. No clubbing or cyanosis. NEUROLOGICAL: Cranial nerves II through XII grossly intact. Normal speech, normal gait. PSYCH: Normal mood, normal affect. SKIN: Warm, Dry, normal turgor, no rashes or lesions noted. Course - Re-evaluation Re-evalutation: 12/07/18 Upon initial assessment patient is resting on stretcher sitting upright in mild distress. Patient states that she is continued to have upper abdominal discomfort around the area above the umbilicus. Patient states that her nausea has improved since receiving the Zofran. Patient is nontoxic-appearing. Will dose with pain medication and wait for CT of the abdomen results. Is tolerating oral contrast. 12/07/18 18:31 Patient ambulated to the restroom and urinated without difficulty. CT scan result is back I do have a page out to Dr. Wick as the patient continues to have upper abdominal pain. I did update the patient has the plan of care. 12/07/18 19:30 I did speak with Dr. Wick regarding the patient's CT scan results. He does recommend that the patient follow-up with her oncology surgeon at [facility] and call for an appointment tomorrow as the possible liver mass versus vascular shunting needs to be evaluated by her oncologist. He stated it did show a ventral hernia that was not incarcerated or needed an acute surgery. I did speak with the patient regarding this and she states she would call him tomorrow . Patient has not vomited and since taking the oral contrast. I will give her a dose of pain medication prior to discharge. I will give patient prescriptions to go home with and strict return precautions to include worsening abdominal pain, inability to urinate, inability to tolerate liquids or food, or any other concerning signs or symptoms. - Vital Signs Vital signs: Temp Pulse Resp BP Pulse Ox 98.8 F 93 22 H 152/108 H 95 12/07/18 13:16 12/07/18 13:16 12/07/18 13:16 12/07/18 13:16 12/07/18 13:16 - Laboratory Result Diagrams: 12/07/18 13:07 12/07/18 13:07 Laboratory results interpreted by me: 12/07/18 12/07/18 12/07/18 13:07 13:07 13:07 Lymphocytes % 11.7 L AST 71 H ALT 72 H Alkaline Phosphatase 160 H Urine Protein 30 H Urine Ketones TRACE H Ur Leukocyte Esterase TRACE H 12/07/18 19:31 Slight elevation in the AST and ALT. - Diagnostic Test Radiology reviewed: Reports reviewed Discharge - Discharge Clinical Impression: Nausea Abdominal pain Qualifiers: Abdominal location: upper abdomen, unspecified Qualified Code(s): R10.10 - Upper abdominal pain, unspecified Ventral hernia Qualifiers: Obstruction and gangrene presence: without obstruction or gangrene Qualified Code(s): K43.9 - Ventral hernia without obstruction or gangrene Condition: Stable Disposition: HOME, SELF-CARE Additional Instructions: Today you were seen in the emergency department for upper abdominal pain. We did obtain a CT of the abdomen and pelvis which did show a possible mass in the liver. You do need to follow-up with your surgical oncologist tomorrow. We will provide you a disc with the CT read as well as a printed copy. The CT scan did also show a ventral hernia at the location of where your pain is. The hernia is not strangulated and does have active blood flow. I did discuss the CT findings with the surgeon who recommended you follow-up with your surgical oncologist. Please return to the emergency department in the meantime for fever, worsening abdominal pain, vomiting, inability to tolerate fluids or any other concerning signs or symptoms. The pain medication that I am prescribing is called Percocet. Percocet is a narcotic; you are not to drive or operate h hopTo machinery while on this medication. This medication can cause constipation. Please increase your fluid intake as well as using an [id number] stool softener. Hernia You have a hernia. A hernia forms at a weak spot in the abdominal wall. Bowel slips out of the abdominal cavity into the weak spot. Hernias tend to occur in the groin (especially in males), the fold of the thigh, the naval, or at a surgical scar. Surgical repair of the defect is usually necessary. The problem tends to get worse. It's important that you follow up as recommended. For now, you should avoid straining, heavy lifting, and vigorous exercise. Complications occur if the hernia becomes tightly stuck. You should come back immediately if the area becomes increasingly painful, swollen, or discolored, or if you develop abdominal pain and vomiting. Prescriptions: Docusate Sodium [Colace] 100 mg PO DAILY #15 capsule Ondansetron [Zofran Odt 4 mg Tablet] 1 tab PO Q4H PRN #15 tab.rapdis PRN Reason: For Nausea/Vomiting Oxycodone HCl/Acetaminophen [Percocet 5-325 mg Tablet] 1 tab PO Q4H PRN #15 tablet PRN Reason: Referrals: CHRISTIE PURVIS, [Primary Care Provider] - Follow up as needed
[2018-12-07] MEDS ORDERED: MORPHINE SULFATE 10 MG/ML INJ IV ONE ×2 (15:17→18:21)
--- NOTE | 2018-12-07 16:40 | RADIOLOGY REPORT (SQ) ---
EXAM DESCRIPTION: CT ABD/PELVIS WITH IV ORAL COMPLETED DATE/TIME: 12/07/2018 4:22 pm REASON FOR STUDY: upper abdominal pain, abdominal mass COMPARISON: 06/24/2017 TECHNIQUE: CT scan of the abdomen and pelvis performed using helical scanning technique with dynamic intravenous contrast injection. No oral contrast. Images reviewed with lung, soft tissue, and bone windows. Reconstructed coronal and sagittal MPR images reviewed. Delayed images for evaluation of the urinary system also acquired. All images stored on PACS. All CT scanners at this facility use dose modulation, iterative reconstruction, and/or weight based d osing when appropriate to reduce radiation dose to as low as reasonably achievable (ALARA). [facility]: Dose Right [facility]: CareDose [facility]: Dose Right [facility]: Teradose 4D [facility]: [employer]2 Games CONTRAST TYPE AND DOSE: contrast/concentration: Isovue 350.00 mg/ml; Total Contrast Delivered: 96.0 ml; Total Saline Delivered: 71.0 ml RENAL FUNCTION: GFR > 60. RADIATION DOSE: CT Rad equipment meets quality standard of care and radiation dose reduction techniq ues were employed. CTDIvol: 15.5 - 20.0 mGy. DLP: 1823 mGy-cm.. LIMITATIONS: None. FINDINGS: LOWER CHEST: No significant findings. No nodules or infiltrates. LIVER: Pneumobilia. 4 cm subcapsular area of low attenuation in segment 4 which is less conspicuous on delayed imaging. No biliary dilatation. SPLEEN: Normal size. No focal lesions. PANCREAS: Prior Whipple procedure. No evidence of recurrent mass or inflammatory change. GALLBLADDER: Surgically absent. ADRENAL GLANDS: No significant masses or asymmetry. RIGHT KIDNEY AND URETER: No solid masses. No significant calcifications. No hydronephrosis or hyd roureter. LEFT KIDNEY AND URETER: No solid masses. No significant calcifications. No hydronephrosis or hydr oureter. AORTA AND VESSELS: No aneurysm. No dissection. Renal arteries, SMA, celiac without stenosis. RETROPERITONEUM: No retroperitoneal adenopathy, hemorrhage or masses. BOWEL AND PERITONEAL CAVITY: Sigmoid diverticulosis. No evidence of diverticulitis. Scattered small mesenteric nodes measuring up to about 1 cm. No bulky adenopathy. APPENDIX: Surgically absent. PELVIS: No mass. No free fluid. Normal bladder. ABDOMINAL WALL: No masses. No hernias. BONES: No significant or acute findings. OTHER: No other significant finding. IMPRESSION: 1. Liver mass versus vascular shunting. Consider correlation with MRI. 2. Prior Whipple procedure. No evidence of recurrent mass. 3. Nonspecific small mesenteric nodes. No bulky adenopathy or ascites. 4. Sigmoid diverticulosis without evidence of diverticulitis. TECHNICAL DOCUMENTATION: JOB ID: [id number] Quality ID # [id number]: Final reports with documentation of one or more dose reduction techniques (e.g., Au tomated exposure control, adjustment of the mA and/or kV according to patient size, use of iterative reconstruction technique) 2010 [employer]- All Rights Reserved Reading location - IP/workstation name: [email or web address]
[2018-12-07 20:10] VITALS: BP 145/86
== END 2018-12-07 20:15 | disposition home or self-care (01) ==
LOC: ER 12:34
DX: K43.9 Ventral hernia without obstruction or gangrene (principal); R10.10 Upper abdominal pain, unspecified; R11.0 Nausea; Z85.07 Personal history of malignant neoplasm of pancreas
CPT/HCPCS: 96376; 99284; 96361; 96374; 96375; 36415; 83605; 83690; 85025; 80053; 81001; 74177; J2270; J2405; J7030